=== PATIENT | male | born 1990 | race Caucasian/White ===

== ENCOUNTER 2023-08-05 13:03 | Outpatient (CLI) | payer OTHER ==
--- NOTE | 2023-08-05 14:11 | Sleep Patient Instructions ---
Sleep Center Visit Summary - Patient Visit Information Reason for Visit: Initial consult for evaluation of sleep disordered breathing and other sleep issues. - Patient Instructions Instructions Attached: Sleep Study, Sleep Study Home Monitor Additional Instructions: You will be completing a sleep study, either an in-lab polysomnography (PSG) or home sleep study (HST). You will follow-up in the sleep care office after the sleep study is completed to hear the results and talk about therapy, if needed. You will be called by our office staff to schedule this appointment, but you may contact us with any questions. - Clinic Information Contact: [facility] [address] [place] [id number] [email or web address] T: [phone]
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
[2023-08-05 14:38] VITALS: BP 112/70; O2SAT 96
== END 2023-08-05 13:04 | disposition home or self-care (01) ==
LOC: SC 13:03
PROVIDERS: ATTEND Nurse Practitioner Family
DX: G47.10 Hypersomnia, unspecified (principal); G47.8 Other sleep disorders; G47.00 Insomnia, unspecified; R53.82 Chronic fatigue, unspecified; R51.9 Headache, unspecified; R41.89 Other symptoms and signs involving cognitive functions and awareness; E66.3 Overweight; Z68.26 Body mass index [BMI] 26.0-26.9, adult
CPT/HCPCS: 99203; 99212

== ENCOUNTER 2023-09-13 08:46 | Outpatient (CLI) | payer OTHER | END 2023-09-13 08:47 | disposition home or self-care (01) | LOC: SC 08:46 | PROVIDERS: ATTEND Nurse Practitioner Family | DX: R09.02 Hypoxemia (principal) | CPT/HCPCS: 95806 ==

== ENCOUNTER 2023-09-22 09:21 | Outpatient (CLI) | payer OTHER ==
--- NOTE | 2023-09-22 09:10 | SLEEP CARE CONSULTATION ---
Information from patient questionnaire entered by Annie Michael. I have reviewed and concur with the information entered by Annie Michael. This document represents the service I personally performed and the decisions made by , Nkechi Camp ARNP. History of Present Illness Service Date and Time: 09/22/2023 0900 Initial [place] Sleepiness Scale score: 2 (08/05/23) Current [place] Sleepiness Scale score: 5 (09/22/23) Additional HPI information: SAMEER BAUER returns via video appointment for follow up and results of the recently performed home sleep study. The patient was informed of the following findings: No significant sleep diso rdered breathing with an average AHI of 1.4 and matt oxygen saturation of 89%. I explained the pathophysiology behind obstructive sleep apnea. Patient does not have sleep apnea and was advised how weight gain could increase the risk of developing sleep apnea in the future. Patient has light snoring. Snoring can be reduced by weight loss. Snoring can also be treated with an oral appliance from a dentist. Advised to check insurance coverage. In addition, an ENT evaluation can be do to see if other treatment is indicated. Patient does not drink alcohol. Patient was cautioned about risks of drowsy driving until sleepiness symptoms resolve. Patient denies drowsy driving. Sleep Study - Results Type of Sleep Study: Home sleep study (COMPLETED 09-13-23) Prior sleep studies: No Polysomnography/Home Sleep Study results: Physician Impression: The quality of the study is fair. The length of the study is adequate (> 240 minutes). Please also see the tabulated and graphic data. 1. No significant sleep disordered breathing, with an AHI of 1.4/hr and matt SaO2 of 89%. During the study, the patient had 8 apneas (8 obstructive, 0 central, 0 mixed) and 3 h ypopneas. The longest episode lasted 75.5 seconds. The patient slept adequately in supine position (supine AHI was 1.8 and non-supine, 1.19). 2. Hypoxemia (ICD-10 R09.02), minimal, with the lowest oxygen saturation of 89 % and 0.1 minutes with SaO2 under 90%. Baseline oxygen saturation was normal (Average oxygen saturation was 95%). Allergies and Home Medications Known drug allergies: Yes (as listed) Drug allergies reviewed: Yes Home medication list reviewed: Yes (no changes) Allergy and home medication list: Allergies ciprofloxacin [From Cipro] Allergy (Verified 09/21/23 12:47) levofloxacin [From Levaquin] Allergy (Verified 09/21/23 12:47) Review of Systems Review of systems same as previous: Yes (NO CHANGE) Physical Exam Vital signs obtained and entered by: ANNIE Rodríguez MA Blood Pressure: 130/90 (PER PT) Height: 5 ft 11 in (PER PT) Weight: 185 lb (PER PT) Body Mass Index: 25.7 BMI Classification: Overweight Impression and Plan 1. Snoring but no significant sleep disordered breathing. Patient advised that often weight loss will reduce snoring as well as apnea risk. An oral appliance can also be used for snoring. This would require a dental consultation. Patient cautioned not to use other online appliances as can cause bite issues. Patient is advised to check if insurance will cover. An ENT consult can also be helpful to determine if any other treatment is an option. 2. Hypoxemia, minimal, with a matt oxygen saturation of 89% and 0.1 minutes spent under 90%. The baseline oxygen saturation was normal with an average oxygen saturation of 95%. 3. Overweight, unspecified. Currently patients BMI is 25.7. Obesity increases the risk of apnea, CPAP pressure requirements and overall health risks especially cardiovascular and diabetes. Thus patient is advised to lose weight. * Attempt to lose weight * Avoid alcohol consumption near bedtime * The patient is cautioned about driving until sleepiness is completely resolved. * Return as needed for follow up. Counseling Topics: Weight loss health impact Follow up with Sleep Care in: as needed Visit Type: Telehealth Video Video Type: [facility] Patient Location: Vac[place] Location of Provider: Office Patient agrees and consents to this telehealth visit type: Yes Patient agrees to have their insurance billed: Yes Time Spent with Patient (minutes): 13 Provider Statement: I spent 100% of the Telehealth Video Call with the patient with greater than 50% spent counseling the patient and coordination of care.
[2023-09-22 09:17] VITALS: BP 130/90
== END 2023-09-22 09:22 | disposition home or self-care (01) ==
LOC: SC 09:21
PROVIDERS: ATTEND Nurse Practitioner Family
DX: R09.02 Hypoxemia (principal); R06.83 Snoring